=== PATIENT | female | born 2000 | race African-American/Black ===

== ENCOUNTER 2023-11-26 15:11 | Emergency (ER) | payer SELFPAY ==
[~2023-11-26] VITALS: Ht 170.2 cm; Wt 77.1 kg
[2023-11-26 15:45] VITALS: BP 114/55; PULSE 86; RESP 18; TEMP 97.9; O2SAT 100
[2023-11-26] MEDS ORDERED: AMOX500C25 PO (16:26)
[2023-11-26] MEDS ORDERED: ACET-10509 PO (16:26)
[2023-11-26] MEDS ORDERED: OFLO5SOL27 LEFT EAR (16:26)
== END 2023-11-26 16:38 | disposition home or self-care (01) ==
LOC: MED 15:11
DX: H66.92 Otitis media, unspecified, left ear (principal); H60.92 Unspecified otitis externa, left ear; R03.0 Elevated blood-pressure reading, without diagnosis of hypertension; Z79.899 Other long term (current) drug therapy
CPT/HCPCS: 99283